=== PATIENT | male | born 1990 | race Caucasian/White ===

== ENCOUNTER 2022-02-10 10:54 | Emergency (ER) | payer OTHER ==
[~2022-02-10] VITALS: Ht 180.3 cm; Wt 82.0 kg
[2022-02-10 10:56] VITALS: BP 118/80
[2022-02-10] MEDS ORDERED: TETanus/Pertussis (Acell)/Diphther VAC/PF (Tdap-Adult) 0.5ml syringe IMVAC ONE (14:10)
== END 2022-02-10 14:31 | disposition home or self-care (01) ==
LOC: ER 10:55
DX: S01.111A Laceration without foreign body of right eyelid and periocular area, initial encounter (principal); W22.8XXA Striking against or struck by other objects, initial encounter; Y93.89 Activity, other specified; Y92.89 Other specified places as the place of occurrence of the external cause; Y99.8 Other external cause status
CPT/HCPCS: 12001; 90471; 90715; 99284